=== PATIENT | female | born 2005 | race African-American/Black ===

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

== ENCOUNTER 2024-06-06 17:00 | Emergency (ER) | payer OTHER ==
--- NOTE | 2024-06-06 17:34 | ED ---
Skin/Abscess/FB HPI - General Chief complaint: Skin/Abscess/Foreign Body Stated complaint: rash Time Seen by Provider: 06/06/24 17:15 Source: patient, family, RN notes reviewed Mode of arrival: ambulatory Limitations: no limitations - History of Present Illness Initial comments: 18-year-old female no significant medical history presents emergency room with mother for concern of a pruritic rash over the past week. Patient states that she has patches of itchy skin that have migrated over her body. Mother states that she is attempted to give the patient mvbm-mti-hppjota cortisone cream with some relief in symptoms. Mom states that she has used a new laundry detergent and believes this may be causing the patient's symptoms. Patient denies fevers, chills, cough, rhinorrhea, sore throat, difficulty breathing. Patient is up-to-date on vaccines. - Related Data Previous Rx's Medication Instructions Recorded Bacitracin Zinc/Polymyxin B 1 applic TOPICAL BID #15 gm 05/29/20 [Bacitracin-Polymyxin Ointment] Allergies Allergy/AdvReac Type Severity Reaction Status Date / Time No Known Allergies Allergy Verified 06/06/24 17:10 Review of Systems ROS Statement: Those systems with pertinent positive or pertinent negative responses have been documented in the HPI. ROS Other: All systems not noted in ROS Statement are negative. Past Medical History Past Medical History: No Reported History History of Any Multi-Drug Resistant Organisms: None Reported Additional Past Surgical History / Comment(s): Surgery from a dog bite Past Psychological History: No Psychological Hx Reported Smoking Status: Vaper Past Alcohol Use History: None Reported Past Drug Use History: Marijuana General Exam Limitations: no limitations Eye exam: Present: normal appearance, PERRL, EOMI. Absent: scleral icterus, conjunctival injection, periorbital swelling ENT exam: Present: normal exam, mucous membranes moist Neck exam: Present: normal inspection. Absent: tenderness, meningismus, lymphadenopathy Respiratory exam: Present: normal lung sounds bilaterally. Absent: respiratory distress, wheezes, rales, rhonchi, stridor Cardiovascular Exam: Present: regular rate, normal rhythm, normal heart sounds. Absent: systolic murmur, diastolic murmur, rubs, gallop, clicks GI/Abdominal exam: Present: soft, normal bowel sounds. Absent: distended, tenderness, guarding, rebound, rigid Expanded Type of lesion: Present: rash Distribution of rash: generalized, abdomen, RUE, LUE, RLE, LLE Course Vital Signs 06/06/24 06/06/24 17:11 18:01 Temperature 98.3 F 98.0 F Pulse Rate 72 70 Respiratory 18 20 Rate Blood Pressure 123/69 118/72 O2 Sat by Pulse 100 100 Oximetry Medical Decision Making - Medical Decision Making Was pt. sent in by a medical professional or institution (, ISABEL, BSA/AML COMPLIANCE OFFICER, urgent care, hospital, or fpc...) When possible be specific @ -No Did you speak to anyone other than the patient for history (EMS, parent, family, police, friend...)? What history was obtained from this source @ -Spoke to patient's mother at bedside states that she is given the patient [id number]-[id number] hydrocortisone with some relief in symptoms Did you review nursing and triage notes (agree or disagree)? Why? @ -I reviewed and agree with nursing and triage notes Were old charts reviewed (outside hosp., previous admission, EMS record, old EKG, old radiological studies, urgent care reports/EKG's, fpc records)? Report findings @ -No old charts were reviewed Differential Diagnosis (chest pain, altered mental status, abdominal pain women, abdominal pain men, vaginal bleeding, weakness, fever, dyspnea, syncope, headache, dizziness, GI bleed, back pain, seizure, CVA, palpatations, mental health, musculoskeletal)? @ -Contact dermatitis, allergic reaction, oqxo-nfhh-xvg-mouth disease, eczema, this list not all inclusive EKG interpreted by me (3pts min.). @ -None X-rays interpreted by me (1pt min.). @ -None done CT interpreted by me (1pt min.). @ -None done U/S interpreted by me (1pt. min.). @ -None done What testing was considered but not performed or refused? (CT, X-rays, U/S, labs)? Why? @ -None What meds were considered but not given or refused? Why? @ -None Did you discuss the management of the patient with other professionals (tori ayoub i.e. ISABEL Skelton, BSA/AML COMPLIANCE OFFICER, lab, RT, psych nurse, clinical social work aide, core stacker, teacher, environmental technical officer, pillowcase cutter)? Give summary @ -No Was smoking cessation discussed for >3mins.? @ -No Was critical care preformed (if so, how long)? @ -No Were there social determinants of health that impacted care today? How? (Homelessness, low income, unemployed, alcoholism, drug addiction, transportation, low edu. Level, literacy, decrease access to med. care, [facility], rehab)? @ -No Was there de-escalation of care discussed even if they declined (Discuss DNR or withdrawal of care, Hospice)? DNR status @ -No What co-morbidities impacted this encounter? (DM, HTN, Smoking, COPD, CAD, Cancer, CVA, ARF, Chemo, Hep., AIDS, mental health diagnosis, sleep apnea, morbid obesity)? @ -None Was patient admitted / discharged? Hospital course, mention meds given and route, prescriptions, significant lab abnormalities, going to OR and other pertinent info. @ -Discharge. 18-year-old female presenting with mother for complaint of a rash. Rash noted to be pruritic very mild with no urticaria or wheals. Patient is provided with Benadryl and topical hydrocortisone cream with likely contact dermatitis. Mother is instructed to discontinue use of laundry detergent. Recommend the patient use Zyrtec or Claritin and Pepcid and Benadryl as needed for itching. Recommend the patient follows up with primary care provider. Case discussed with Dr. Lyles Undiagnosed new problem with uncertain prognosis? @ -No Drug Therapy requiring intensive monitoring for toxicity (Heparin, Nitro, Insulin, Cardizem)? @ -No Were any procedures done? @ -No Diagnosis/symptom? @ -Contact dermatitis Acute, or Chronic, or Acute on Chronic? @ -Acute Uncomplicated (without systemic symptoms) or Complicated (systemic symptoms)? @ -Uncomplicated Side effects of treatment? @ -No Exacerbation, Progression, or Severe Exacerbation? @ -No Poses a threat to life or bodily function? How? (Chest pain, [place], [place], pneumonia, PE, COPD, DKA, ARF, appy, cholecystitis, CVA, Diverticulitis, Homicidal, Suicidal, threat to staff... and all critical care pts) @ -No Disposition Clinical Impression: Contact dermatitis Disposition: HOME SELF-CARE Condition: Good Instructions (If sedation given, give patient instructions): Contact Dermatitis (DC) Additional Instructions: Please return to the Emergency Department if symptoms worsen or any other concerns. Continue to use topical corticosteroid cream over affected areas up to 4 times a day. You may use Benadryl in addition to Claritin or Zyrtec and or Pepcid as needed for itching. Do not use Claritin and Zyrtec together, however you may use Benadryl with Claritin or Zyrtec and Pepcid Is patient prescribed a controlled substance at d/c from ED?: No Referrals: None,Stated [Primary Care Provider] - 1-2 days Time of Disposition: 17:53
[2024-06-06] MEDS: FAMOTIDINE 20 MG TAB PO STA (17:41)
[2024-06-06] MEDS: diphenhydrAMINE 50 MG CAP PO STA (17:41)
[2024-06-06] MEDS: HYDROCORTISONE 1% CREAM 30 GM TUBE TOPICAL STA (17:55)
[2024-06-06 18:02] VITALS: BP 118/72; PULSE 70; RESP 20; TEMP 98
== END 2024-06-06 18:21 | disposition home or self-care (01) ==
LOC: EC 17:00
DX: L25.9 Unspecified contact dermatitis, unspecified cause (principal); F17.290 Nicotine dependence, other tobacco product, uncomplicated
CPT/HCPCS: 99282